=== PATIENT | female | born 1950 | race Caucasian/White ===

== ENCOUNTER → 2020-05-14 | Outpatient (CLI) | payer MEDICARE ==
[~2020-05-14] MED LIST: ANORO ELLIPTA1 EACH INH; FAMOTIDINE40 MG PO; HYDROCHLOROTH12.5 MG PO; HYDROCODON-ACE1 EAC6 PO; ISOSORBIDE MONO30 MG PO; LEVOTHYROXINE75 MCG PO; LOPRESSOR 25 MG25 MG PO; MEDROL DOSEPAK 24 MG PO; NICOTINE PATCH1 EAC1 TD; PRILOSEC OTC20 MG PO; ROBITUSSIN AC PO; TRELEGY ELLIPT1 EACH INH; VENTOLIN HFA 66.7 GM INH
== END ==
LOC: CT 07:30
DX: R10.12 Left upper quadrant pain (principal)
CPT/HCPCS: 74160; Q9967

== ENCOUNTER 2020-06-10 15:03 | Emergency (ER) | payer MEDICARE ==
[2020-06-10 15:49] LABS: HEMOGLOBIN 14.2 gm/dl (12.3-15.3); RED BLOOD COUNT 4.47 M/UL (4.00-5.10); WHITE BLOOD COUNT 12.1 K/UL (4.5-11.0)
[2020-06-10 16:22] LABS: BUN/CREATININE RATIO 19 (0-10)
== END 2020-06-10 17:10 | disposition left against medical advice (07) ==
LOC: ER1 15:03
PROVIDERS: Physician Assistant
DX: R07.89 Other chest pain (principal); R06.02 Shortness of breath; R10.12 Left upper quadrant pain; I25.10 Atherosclerotic heart disease of native coronary artery without angina pectoris; E11.9 Type 2 diabetes mellitus without complications; E78.5 Hyperlipidemia, unspecified; I51.9 Heart disease, unspecified; K21.9 Gastro-esophageal reflux disease without esophagitis; F17.210 Nicotine dependence, cigarettes, uncomplicated; J44.9 Chronic obstructive pulmonary disease, unspecified; Z95.5 Presence of coronary angioplasty implant and graft; Z79.84 Long term (current) use of oral hypoglycemic drugs; Z90.49 Acquired absence of other specified parts of digestive tract; Z90.710 Acquired absence of both cervix and uterus; Z88.0 Allergy status to penicillin; Z88.8 Allergy status to other drugs, medicaments and biological substances; Z79.82 Long term (current) use of aspirin
CPT/HCPCS: 71045; 80053; 82550; 82553; 83874; 84484; 85025; 93005; 96374; 99285

== ENCOUNTER → 2020-10-28 | Outpatient (CLI) | payer MEDICARE | LOC: KOH-I 14:05 | DX: J22 Unspecified acute lower respiratory infection (principal) | CPT/HCPCS: 71046 ==

== ENCOUNTER → 2021-11-21 | Outpatient (CLI) | payer MEDICARE | LOC: KOH-I 14:23 | DX: M25.562 Pain in left knee (principal); M25.552 Pain in left hip; M16.12 Unilateral primary osteoarthritis, left hip | CPT/HCPCS: 73502; 73560 ==